=== PATIENT | female | born 1995 | race African-American/Black ===

== ENCOUNTER 2024-08-29 20:09 | Outpatient (CLI) | payer OTHER, SELFPAY | END 2024-08-29 20:10 | disposition home or self-care (01) | LOC: AMB 09-01 12:04 | PROVIDERS: Visit Provider Student in an Organized Health Care Education/Training Program | DX: O21.8 Other vomiting complicating pregnancy (principal); Z3A.23 23 weeks gestation of pregnancy | CPT/HCPCS: A0425; A0427 ==